=== PATIENT | female | born 1990 ===

== ENCOUNTER 2023-08-29 12:57 | Outpatient (REF) | payer BC, SELFPAY ==
--- NOTE | 2023-08-29 07:45 | PAPFT_PTH ---
PATIENT: Merced Ayon LOC: [facility]#:[id number] AGE/SX: 33/F ROOM: RE08/29/[address]: KYRA: 1990 BED: DIS: 08/29/2023 SPEC #: [id number] RECD: 08/29/23 17:48 STATUS: TG JAIME #: [id number] MARQUEZ: 08/29/23 07:[address]: Batsheva Moreira DEPT: [facility] Cytology RECD BY: Maggie Pond Tissues: 1 - CX/ENDOCX FOR PAP SMEARS Procedures: PAP THIN PREP/[facility] Screening HPV DNA PROBE Comments: [id number] (CHLAMYDIA/GC)
[2023-08-29 14:40] LABS: Calculated LDL 103 mg/dL (<100); Cholesterol 165 mg/dL (<200); HDL Cholesterol 56 mg/dL (40-60); TSH 2.94 uIU/mL (0.36-3.74); Triglyceride 32 mg/dL (<150)
[2023-09-01 13:33] LABS: Chlamydia Result Negative (Negative); GC Result Negative (Negative)
== END 2023-08-29 12:58 | disposition home or self-care (01) ==
LOC: NCHCN 12:57
PROVIDERS: PCP Family Medicine; Visit Provider Family Medicine
DX: Z00.00 Encounter for general adult medical examination without abnormal findings (principal); Z12.4 Encounter for screening for malignant neoplasm of cervix
CPT/HCPCS: 80061; 87491; 87591; 88142; 84443; 87624